=== PATIENT | female | born 1975 | race Caucasian/White ===

== ENCOUNTER 2019-03-21 19:03 | Emergency (ER) | payer OTHER, MEDICAID, SELFPAY ==
[2019-03-21 19:05] VITALS: BP 107/54; PULSE 61; RESP 18; TEMP 36.9; O2SAT 98; BMI 30.4
--- NOTE | 2019-03-21 19:37 | ED_ITS ---
HPI - Abdominal Pain <GILES Nam - Last Filed: 03/21/19 22:45> General Chief Complaint: Recheck/Abnormal Lab/Rx Stated Complaint: d&c and back pain Time Seen by Provider: 03/21/19 19:10 Source: patient Mode of arrival: ambulatory Limitations: no limitations History of Present Illness HPI narrative: Patient is a 43-year-old female with Brudada syndrome requiring ICD pacemaker, , fibromyalgia, anxiety, polysubstance abuse, presents emergency department today stating that she had a D&C on 03/13/2019 for retained products of conception after a miscarriage at 9.5 weeks. Patient states she was told that she still retained products after the D&C. She was then is seen in the emergency department 3 times in the last week at [facility] as she states she was still bleeding. The emergency department there contacted an advertising sales assistant whom recommended she take methergine for 2 days. The patient presents emergency department today stating that since 11:00 p.m. last night, her uterine bleeding has stopped. She is upset as she thinks the medication is not working and that she is still retaining products of conception. Patient states she has been having vaginal bleeding since 03/13/2019 with occasional cortisone is clots. She also reports lower abdominal cramping 2/10 to 8/10 in severity. Patient denies headaches, fevers, vision changes, chest pain, shortness of breath, vaginal bleeding at this time, dysuria, vomiting, or bowel changes. She also reports that she is very anxious and wants to get this over with and back to her family, and reports nausea from the medication. She states she is here cause she was given a choice of 2 different medications fpr this issue last night in the ED and she wants to start taking the other medication. Related Data Allergies Allergy/AdvReac Type Severity Reaction Status Date / Time Sulfa (Sulfonamide Allergy Intermediate HIVES AND Verified 03/21/19 22:52 Antibiotics) SWELLING [SULFA (SULFONAMIDE ANTIBIOTICS)] amitriptyline Allergy Verified 03/21/19 19:25 Review of Systems <GILES Nam - Last Filed: 03/21/19 22:45> Review of Systems Narrative: REVIEW OF SYSTEMS: GENERAL: Denies fever, chills, malaise, or wt. loss. HENT: No head trauma, sore throat, or dysphagia. EYES: No loss of vision, double vision, eye pain, or irritation. CARDIOVASCULAR: No chest pain, palpitations, or orthopnea. RESPIRATORY: No shortness of breath or cough. GASTROINTESTINAL: Complains of abdominal cramping , see HPI GENITOURINARY: No flank pain, urinary incontinence, hesitancy, frequency, or dysuria. No vaginal discharge at this time, states her vaginal bleeding ceased at 11pm last night. MUSCULOSKELETAL: No pain, weakness, or trauma. INTEGUMENTARY: No rash, lesions, or pruritus. NEURO: No numbness, tingling, memory loss, confusion, or headaches. PSYCH: No behavior or mood changes. PFSH <GILES Nam - Last Filed: 03/21/19 22:45> Social History Smoking Status: Current some day smoker Exam <GILES Nam - Last Filed: 03/21/19 22:45> Initial Vital Signs Initial Vital Signs: Vital Signs Temperature 98.4 F 03/21/19 19:05 Pulse Rate 61 03/21/19 19:05 Respiratory Rate 18 03/21/19 19:05 Blood Pressure 107/54 L 03/21/19 19:05 Pulse Oximetry 98 03/21/19 19:05 PHYSICAL EXAMINATION: GENERAL: Well groomed, alert, and cooperative. Very tearful during examination. Answers questions promptly and appropriately. Vital signs noted. HENT: Normocephalic, atraumatic. Hearing intact. Oral mucosa is pink and moist. EYES: Conjunctiva pink, sclera white, no periorbital swelling. CARDIOVASCULAR: S1 and S2 sounds auscultated. Regular rate and rhythm, no murmurs, clicks, or bruits. RESPIRATORY: Normal respiratory rate, trachea midline, airway patent. No stridor, nasal flaring or accessory muscle use. Lungs are clear in all [place] without wheeze, rhonchi, or crackles. GASTROINTESTINAL: Bowel sounds normoactive. Abdomen is soft slight tenderness to lower mid pelvic area with deep palpation, no rebound tenderness. No organomegaly, no palpable masses. GENITALURINARY: No flank tenderness. MUSCULOSKELETAL: Normal gait and coordination. Equal tone and mass bilaterally. EXTREMITIES: CMS intact, no pedal edema. SKIN: Warm, dry, soft, appropriate color for ethnicity. No lesions, rashes, or wounds. NEURO: Alert and Oriented X 3. Good coordination. No ataxia, or sensory deficits, or cognitive issues. PSYCH: Appropriate affect and mood. <Ra Velazquez DO - Last Filed: 03/22/19 06:44> Initial Vital Signs Initial Vital Signs: Vital Signs Temperature 98.4 F 03/21/19 19:05 Pulse Rate 61 03/21/19 19:05 Respiratory Rate 18 03/21/19 19:05 Blood Pressure 107/54 L 03/21/19 19:05 Pulse Oximetry 98 03/21/19 19:05 Course <GILES Nam - Last Filed: 03/21/19 22:45> Course Course Narrative: Records were requested from [facility]. It appears that her ultrasound that was done on 03/20/19 was inconclusive for retained products versus a hematoma. Labs were drawn and an ultrasound was repeated. The low are pertinent details from records obtained from [facility]. Records were obtained from [facility] which showed. Patient was in the emergency department on 03/17/2019 Pelvic Ultrasound: Suspicious for retained products of conception after D&C. Hemoglobin: 13.2 Hematocrit: 38.4 HC Patient was in the emergency department on 03/20/2019 at [facility] Pelvic ultrasound showed: Endometrial continues to demonstrate fluid along with hypercolic material that may represent blood. There has been no change since prior study, it is not possible to complete the exclude retained products of conception. Hemoglobin: 43.4 Hematocrit: 14.7 Patient was given Methergine 0.2 t.i.d. x2 days told to follow up on Saturday with OBGYN. She was also given Zofran, oxycodone, and lorazepam. Ob was consulted. I spoke with Dr. Stovall at 1010. She advised that the patient continue to take Methergine and follow-up with an Ob within the next week if she desires another D&C. She agrees emergent D&C was not needed as patient is very stable. This was all explained to patient, patient received this well and states she would be happy to be seen in our OB Clinic and she was not satisfied with the her last OB care and stated ?I did not like how they treated knee ?. Patient was to free at this time, calm, and relaxed. Orders Ordered: Discontinued Medications Ketorolac Tromethamine (Toradol) 30 mg IM NOW ONE Stop: 03/21/19 22:48 Last Admin: 03/21/19 22:53 Dose: 30 mg Documented by: LORENZO Consultations Consultation #1: Patient was staffed with Dr. Velazquez. Vital Signs Vital signs: Vital Signs - 8 hr 03/21/19 23:09 Pulse Rate 52 L Blood Pressure 111/70 <Ra Velazquez DO - Last Filed: 03/22/19 06:44> Orders Ordered: Discontinued Medications Ketorolac Tromethamine (Toradol) 30 mg IM NOW ONE Stop: 03/21/19 22:48 Last Admin: 03/21/19 22:53 Dose: 30 mg Documented by: LORENZO Vital Signs Vital signs: Vital Signs - 8 hr 03/21/19 23:09 Pulse Rate 52 L Blood Pressure 111/70 MDM - Abdominal Pain <GILES Nam - Last Filed: 03/21/19 22:45> Medical Records Attestation: I reviewed the patient's medical records. Lab Data Attestation: I reviewed the patient's lab results. Result diagrams: 03/21/19 21:01 Labs: Lab Results 03/21/19 03/21/19 Range/Units 21:01 21:01 WBC 8.3 (4.5-11.0) X10^3/uL RBC 4.12 (4.0-5.2) X10^6/uL Hgb 12.9 (12.0-16.0) g/dL Hct 38.0 (36-46) % MCV 92.2 (80-100) fL MCH 31.2 (26-34) PG MCHC 33.9 (30-36) % RDW 12.5 (11.6-14.8) % Plt Count 152 (150-400) X10^3/uL Neut % (Auto) 49.8 L (50-75) % Lymph % (Auto) 38.1 (25-40) % [place] % (Auto) 7.5 (3-14) % Eos % (Auto) 3.8 (2-4) % Baso % (Auto) 0.8 (0-2) % Neut # (Auto) 4200 (6782-6572) /uL Lymph # (Auto) 3200 (8596-4067) /uL [place] # (Auto) 600 (0-900) /uL Eos # (Auto) 300 (0-450) /uL Baso # (Auto) 100 (0-100) /uL HCG, Quant 603.27 mIU/mL Imaging Data US - abdomen: Radiologist's impression: [address] [address] Ultrasound Report Signed Patient: Deandra Crocker EMR#: [id number] : [id number]:[id number] Age/Sex: 43 / FDate of Service: 03/21/19 Loc: ED Accession Number: [id number] Procedure: US pelvic complete Ordering Provider: Alia Liao PROCEDURE: US PELVIC COMPLETE INDICATIONS: CONTINUED BLEEDING AFTER DILATION AND CURETTAGE TECHNIQUE: Real-time scanning was performed of the pelvic organs, with image documentation. Additional endovaginal scanning was necessary due to incomplete visualization of the adnexal and endometrial structures by transabdominal scanning. COMPARISON: [facility], , US PELVIC COMPLETE WITH TRANSVAGINAL, 03/20/2019, 22:44. FINDINGS: Transabdominal scanning: Limited scanning through the kidneys shows no hydronephrosis. No pathologic free abdominal or pelvic fluid. Endovaginal scanning: Uterus: Uterus is normal in size at 11.3 x 6.8 x 5.0 cm. cm. The endometrium measures 15.6 mm in combined thickness. Hyperechoic material again noted in the uterine cavity. Complex fluid measuring 2.2 x 0.8 x 0.6 cm is noted in the endometrial cavity. Ovaries: Right ovary measures 3.3 x 3.0 x 2.0 cm. Right ovary is sonographically normal. Left ovary is not identified the current study secondary to bowel gas and cannot be evaluated. IMPRESSION: Thickened endometrium with persistent hyperechoic material and complex fluid in the endometrial cavity which may represent hemorrhage and clot however underlying retained products of conception cannot be excluded. Dictated by: Hawa King MD, PhD on 03/21/2019 at 21:24 Approved by: Hawa King MD, PhD on 03/21/2019 at 21:28 MDM Narrative Medical decision making narrative: Differential is fairly simple as retained products of conception are suspected the ultrasound. Additionally, patient has had following levels of HCG. She has had stable HCT and hemoglobin levels. She is hemodynamically stable without distress. Patient does not meet emergent criteria for surgical intervention at this time. She is safe for outpatient therapy. Strict return precautions given and follow-up instructions discussed. <Ra Josephan, DO - Last Filed: 03/22/19 06:44> Lab Data Labs: Lab Results 03/21/19 03/21/19 Range/Units 21:01 21:01 WBC 8.3 (4.5-11.0) X10^3/uL RBC 4.12 (4.0-5.2) X10^6/uL Hgb 12.9 (12.0-16.0) g/dL Hct 38.0 (36-46) % MCV 92.2 (80-100) fL MCH 31.2 (26-34) PG MCHC 33.9 (30-36) % RDW 12.5 (11.6-14.8) % Plt Count 152 (150-400) X10^3/uL Neut % (Auto) 49.8 L (50-75) % Lymph % (Auto) 38.1 (25-40) % [place] % (Auto) 7.5 (3-14) % Eos % (Auto) 3.8 (2-4) % Baso % (Auto) 0.8 (0-2) % Neut # (Auto) 4200 (7215-4162) /uL Lymph # (Auto) 3200 (9022-4112) /uL [place] # (Auto) 600 (0-900) /uL Eos # (Auto) 300 (0-450) /uL Baso # (Auto) 100 (0-100) /uL HCG, Quant 603.27 mIU/mL Discharge Plan Departure Patient Disposition: Home Clinical Impression: Retained products of conception after miscarriage Discharge Date/Time: 03/21/19 23:10 Activity Restrictions/Additional Instructions: Thank you for entrusting me with your care today. As discussed, your HCG levels are decreasing which is reassuring, however your ultrasound shows there is still a small amount of products of conception retained in your uterus. I have spoke with Dr. Stovall and she suggested continue taking medication as directed. Your body may take some time to go through this process. I have placed a referral to our Ob Clinic, please call them on Saturday to schedule an appointment, their number is [phone]. Return to the emergency department if you develop severe bleeding, dizziness, syncope, chest pain, shortness of breath, or any other concerns. Referrals: Sommer Butt, [employer]OR-[employer] [Primary Care Provider] - Sandy Stovall MD [Physician] - (Retained products of conception following miscarriage and D & C. ) <Ra Velazquez DO - Last Filed: 03/22/19 06:44> Sign Out Provider Sign Out Attestation: I was immediately available in the department for consultation. Documentation has been reviewed. I agree with assessment and plan.
--- NOTE | 2019-03-21 20:02 | DI.US.S_ITS ---
PROCEDURE: US PELVIC COMPLETE INDICATIONS: CONTINUED BLEEDING AFTER DILATION AND CURETTAGE TECHNIQUE: Real-time scanning was performed of the pelvic organs, with image documentation. Additional endovaginal scanning was necessary due to incomplete visualization of the adnexal and endometrial structures by transabdominal scanning. COMPARISON: [facility], US, US PELVIC COMPLETE WITH TRANSVAGINAL, 03/20/2019, 22:44. FINDINGS: Transabdominal scanning: Limited scanning through the kidneys shows no hydronephrosis. No pathologic free abdominal or pelvic fluid. Endovaginal scanning: Uterus: Uterus is normal in size at 11.3 x 6.8 x 5.0 cm. cm. The endometrium measures 15.6 mm in combined thickness. Hyperechoic material again noted in the uterine cavity. Complex fluid measuring 2.2 x 0.8 x 0.6 cm is noted in the endometrial cavity. Ovaries: Right ovary measures 3.3 x 3.0 x 2.0 cm. Right ovary is sonographically normal. Left ovary is not identified the current study secondary to bowel gas and cannot be evaluated. IMPRESSION: Thickened endometrium with persistent hyperechoic material and complex fluid in the endometrial cavity which may represent hemorrhage and clot however underlying retained products of conception cannot be excluded. Dictated by: Hawa King MD, PhD on 03/21/2019 at 21:24 Approved by: Hawa King MD, PhD on 03/21/2019 at 21:28
[2019-03-21 21:03] VITALS: BP 104/59; PULSE 51; RESP 17; O2SAT 100
[2019-03-21 21:19] LABS: Add Manual Diff / Slide Review NO; Basophils Absolute Auto 100 /uL (0-100); Basophils Percent Auto 0.8 % (0-2); Eosinophils Absolute Auto 300 /uL (0-450); Eosinophils Percent Auto 3.8 % (2-4); Hemoglobin 12.9 g/dL (12.0-16.0); Lymphocytes Absolute Auto 3200 /uL (1100-4500); Lymphocytes Percent Auto 38.1 % (25-40); Mean Corpuscular HGB Conc 33.9 % (30-36); Mean Corpuscular Hemoglobin 31.2 PG (26-34); Mean Corpuscular Volume 92.2 fL (80-100); Monocytes Absolute Auto 600 /uL (0-900); Monocytes Percent Auto 7.5 % (3-14); Neutrophils Absolute Auto 4200 /uL (1500-7000); Neutrophils Percent Auto 49.8 % (50-75); Platelet Count 152 X10^3/uL (150-400); Red Blood Cell Count 4.12 X10^6/uL (4.0-5.2); Red Cell Distribution Width 12.5 % (11.6-14.8); White Blood Cell Count 8.3 X10^3/uL (4.5-11.0)
[2019-03-21 21:46] LABS: HCG Quantitative /Beta subunit 603.27 mIU/mL
[2019-03-21] MEDS: KETOROLAC 60 MG/2 ML VIAL 30 MG IM (22:53)
[2019-03-21 23:09] VITALS: BP 111/70; PULSE 52
== END 2019-03-21 23:10 | disposition home or self-care (01) ==
PROVIDERS: Emergency Provider Nurse Practitioner; Family Provider Family Medicine; PCP Nurse Practitioner
DX: O03.4 Incomplete spontaneous abortion without complication (principal)
CPT/HCPCS: 36415; 76856; 84702; 85025; 96372; 99282; 99284; J1885

== ENCOUNTER 2020-09-07 02:52 | Emergency (ER) | payer OTHER, SELFPAY ==
--- NOTE | 2020-09-07 02:54 | ED.FEMALEGU ---
HPI - Female Genitourinary General Chief complaint: Vaginal Bleeding Stated complaint: 7 wks thinks having a miscarriage Time Seen by Provider: 09/07/20 02:53 Source: patient Mode of arrival: Ambulatory Limitations: no limitations History of Present Illness HPI Narrative: 45-year-old female occasional smoker with a history of Brugada syndrome and pacemaker AICD presents with about 10 hours of light spotting and pelvic cramping. She is a at about 7 weeks by dates and does not have care established for this yet. She is not dizzy, weak or lightheaded. She denies any chest pain or shortness of breath. She has had no fever or shaking chills. She states that she was bleeding a bit heavier earlier today but has slowed. MD Complaint: vaginal bleeding and vaginal discharge Onset (ago): hour(s) Location: suprapubic Severity: mild Quality: Cramping Duration: intermittent Relieving factors: none Exacerbating factors: none Vaginal discharge: blood clots Patient : Yes Associated symptoms: denies other symptoms Related Data Allergies Allergy/AdvReac Type Severity Reaction Status Date / Time Sulfa (Sulfonamide Allergy Intermediate HIVES AND Verified 03/21/19 22:52 Antibiotics) SWELLING [SULFA (SULFONAMIDE ANTIBIOTICS)] amitriptyline Allergy Verified 03/21/19 19:25 Review of Systems Constitutional Constitutional: Denies chills, Denies fatigue, Denies fever(s), Denies frequent falls, Denies lethargy and Denies weakness Eyes Eyes: Denies change in vision, Denies eye discharge, Denies irritation and Denies loss of vision ENT Ears, Nose, Mouth, and Throat: Denies change in voice, Denies dizziness, Denies neck pain, Denies sore throat and Denies throat swelling Cardiovascular Cardiovascular: Denies chest pain, Denies irregular heart rhythm, Denies lightheadedness, Denies palpitations, Denies dyspnea, Denies dyspnea on exertion and Denies orthopnea Respiratory Respiratory: Denies cough, Denies dyspnea, Denies dyspnea on exertion and Denies wheezing Gastrointestinal Gastrointestinal: Denies abdominal pain, Denies change in bowel habits, Denies diarrhea, Denies nausea and Denies vomiting Genitourinary Genitourinary: Denies dysuria and Denies dysuria Genitourinary: Reports abnormal vaginal bleeding, Denies difficulty voiding, Denies dysuria, Denies dysuria and Reports pelvic pain Musculoskeletal Musculoskeletal: Denies neck pain and Denies numbness Integumentary/Breasts Skin/Breast: Denies pruritus, Denies erythema, Denies rash and Denies wounds Neurologic Neurologic: Denies behavioral changes, Denies confusion, Denies dizziness, Denies frequent falls, Denies loss of vision, Denies numbness and Denies weakness Psychiatric Psychiatric: Denies anxiety, Denies behavioral changes, Denies confusion, Denies depression, Denies homicidal ideation and Denies suicidal ideation Endocrine Endocrine: Denies fatigue, Denies flushing and Denies palpitations Hematologic/Lymphatic Hematologic/Lymphatic: Denies easy bruising Allergic/Immunologic Allergic/Immunologic: Denies urticaria, Denies throat swelling and Denies wheezing Patient History Medical History (Updated 09/07/20 @ 04:51 by Ra Velazquez DO) Presence of combination internal cardiac defibrillator (ICD) and pacemaker alcohol intake frequency: other Substance Use Type: does not use Exam Narrative Exam Narrative: GENERAL: [45] year old patient appears stated age. Well-nourished, well-developed patient, in mild distress. HEAD: Atraumatic. Normocephalic. EYES: Pupils equal round and reactive. Extraocular motions intact. No scleral icterus. No injection or drainage. ENT: Nose without bleeding, purulent drainage. Throat without erythema, tonsillar hypertrophy or exudate. Airway patent. NECK: Trachea midline. Non tender CARDIOVASCULAR: Regular rate and rhythm without murmurs, gallops, or rubs. RESPIRATORY: Clear to auscultation. Breath sounds equal bilaterally. No wheezes, rales, or rhonchi. GASTROINTESTINAL: Abdomen soft, non-tender, nondistended. EXTREMITIES: No edema or joint tenderness. BACK: Nontender without deformity or crepitance. No flank tenderness. NEURO: AOx3. SKIN: No rash or erythema of visible areas Initial Vital Signs Initial Vital Signs: Vital Signs Temperature 98.6 F 09/07/20 03:01 Pulse Rate 100 H 09/07/20 03:01 Respiratory Rate 16 09/07/20 03:01 Blood Pressure 123/65 09/07/20 03:01 Pulse Oximetry 97 09/07/20 03:01 Course Orders Ordered: ED Orders 09/07/20 03:55 Basic Metabolic Panel Stat Complete Blood Count AUTO DIFF Stat HCG Quantitative /Beta subunit Stat 09/07/20 04:52 US OB <= 14 weeks fetus Stat Vital Signs Vital signs: Vital Signs - 8 hr 09/07/20 03:01 Temperature 98.6 F Pulse Rate 100 H Respiratory Rate 16 Blood Pressure 123/65 Pulse Oximetry 97 MDM - Female Genitourinary Lab Data Result diagrams: 09/07/20 03:55 09/07/20 03:55 Labs: Lab Results 09/07/20 09/07/20 Range/Units 03:55 03:55 WBC 11.1 H (4.5-11.0) X10^3/uL RBC 4.48 (4.0-5.2) X10^6/uL Hgb 13.6 (12.0-16.0) g/dL Hct 40.1 (36-46) % MCV 89.4 (80-100) fL MCH 30.3 (26-34) PG MCHC 33.9 (30-36) % RDW 13.4 (11.6-14.8) % Plt Count 185 (150-400) X10^3/uL Neut % (Auto) 60.0 (50-75) % Lymph % (Auto) 31.2 (25-40) % [place] % (Auto) 6.6 (3-14) % Eos % (Auto) 1.4 L (2-4) % Baso % (Auto) 0.8 (0-2) % Neut # (Auto) 6600 (9314-6040) /uL Lymph # (Auto) 3400 (1062-2867) /uL [place] # (Auto) 700 (0-900) /uL Eos # (Auto) 200 (0-450) /uL Baso # (Auto) 100 (0-100) /uL Sodium 135 L (137-145) mmol/L Potassium 3.9 (3.4-5.1) mmol/L Chloride 106 (98-107) mmol/L Carbon Dioxide 23 (22-32) mmol/L BUN 6 L (7-17) mg/dL Creatinine 0.63 (0.52-1.04) mg/dL Estimated GFR > 60.0 (>60) mL/min BUN/Creatinine Ratio 9.5 (6-22) Glucose 109 H (70-100) mg/dL Calcium 9.3 (8.4-10.2) mg/dL HCG, Quant 44165 mIU/mL Urine Dip Bedside Urine Glucose Negative Bedside Urine Bilirubin - Negative Bedside Urine Ketone - Negative Urine Specific [place] 1.020 Bedside Urine Occult Blood - Negative Bedside Urine pH 6.0 Bedside Urine Protein - Negative Bedside Urine Urobilinogen - Negative Bedside Urine Nitrite - Negative Bedside Urine Leukocytes - Negative Esterase Imaging Data US - OB: Radiologist's Impression: IUP at 6 weeks 4 days. No subchorionic bleed MDM Narrative Medical decision making narrative: Minimal bleeding with stables vitals and H/H. IUP on ultrasound. Discussed with patient that I am concerned about threatened AB and she states an understanding and has been through it before. We discussed return precautions, pelvic rest and need for follow up Discharge Plan Departure Patient Disposition: Home Clinical Impression: Vaginal bleeding, Threatened Instructions: DI for Vaginal Bleeding During Activity Restrictions/Additional Instructions: *You have been diagnosed with [vaginal bleeding and cramping in . Unclear etiology at this point, could be early miscarriage] *What to do: *Follow up with your OB / primary care provider in 2-3 days, call for an appointment. Let them know you were seen in the Emergency Department and that we ask that you be seen in follow up *Return to ER if you should have any new, worsening or concerning symptoms, such as [bleeding through greater than 1 pad per hour for multiple hours, increasing pain, fever over 101 F or other bothersome symptoms] Referrals: Sommer Butt FNP-C [Primary Care Provider] -
[2020-09-07 03:01] VITALS: BP 123/65; PULSE 100; RESP 16; TEMP 37; O2SAT 97; BMI 28.8
--- NOTE | 2020-09-07 03:59 | PC.NURSE ---
Pt stated she is and currently is 7 weeks . She noticed that since 09/06 she has been passing clots and some bloody discharge and feels she may be miscarrying. Urine analyzed and blood drawn for labs
[2020-09-07 04:11] LABS: Add Manual Diff / Slide Review NO; Basophils Absolute Auto 100 /uL (0-100); Basophils Percent Auto 0.8 % (0-2); Eosinophils Absolute Auto 200 /uL (0-450); Eosinophils Percent Auto 1.4 % (2-4); Hematocrit 40.1 % (36-46); Hemoglobin 13.6 g/dL (12.0-16.0); Lymphocytes Absolute Auto 3400 /uL (1100-4500); Lymphocytes Percent Auto 31.2 % (25-40); Mean Corpuscular HGB Conc 33.9 % (30-36); Mean Corpuscular Hemoglobin 30.3 PG (26-34); Mean Corpuscular Volume 89.4 fL (80-100); Monocytes Absolute Auto 700 /uL (0-900); Monocytes Percent Auto 6.6 % (3-14); Neutrophils Absolute Auto 6600 /uL (1500-7000); Platelet Count 185 X10^3/uL (150-400); Red Blood Cell Count 4.48 X10^6/uL (4.0-5.2); Red Cell Distribution Width 13.4 % (11.6-14.8); White Blood Cell Count 11.1 X10^3/uL (4.5-11.0)
[2020-09-07 04:14] LABS: BUN Creatinine Ratio 9.5 (6-22); Blood Urea Nitrogen 6 mg/dL (7-17); Calcium 9.3 mg/dL (8.4-10.2); Carbon Dioxide 23 mmol/L (22-32); Chloride 106 mmol/L (98-107); Estimated Glomerular Filt Rate > 60.0 mL/min (>60); Glucose 109 mg/dL (70-100); HEMOLYSIS < 15 (0-50); Potassium 3.9 mmol/L (3.4-5.1); Sodium 135 mmol/L (137-145)
--- NOTE | 2020-09-07 04:52 | DI.US.S_ITS ---
PROCEDURE: US OB <= 14 WEEKS FETUS INDICATIONS: BLEEDING OUTSIDE/PRIOR DATING DATA: Last menstrual period (LMP): 07/30/2020 LMP-based estimated date of delivery (ZOE): 04/26/2021 First dating scan (date and location): 09/07/2020 Estimated date of delivery (ZOE) from first dating scan: 04/29/2021 TECHNIQUE: Real-time scanning was performed of the fetus and maternal pelvic organs, with image documentation. Endovaginal scanning was also performed to better visualize the fetus and maternal ovaries. COMPARISON: None. FINDINGS: Embryo: Single intrauterine gestational sac is seen with fetus and yolk sac seen. [place]-rump length measures 0.7 centimeters. Estimated gestational age is 6 weeks 4 days. heart rate is 125 beats per minute. No perigestational hemorrhage is seen. Measurement variability in dating: +/- 4 weeks by LMP, +/- 7 days by mean sac diameter (use before 6 weeks gestation if crown-rump length not able to be measured), +/- 5 days by crown-rump length (up to 8 weeks 6 days gestation), +/- 7 days by crown-rump length (up to 13 weeks 6 days gestation). Maternal organs: Right ovary is visualized and is within normal limits. Left ovary is not definitively identified. IMPRESSION: 1. Single live intrauterine with fetus and yolk sac seen. heart rate is 125 beats per minute. Estimated gestational age is 6 weeks, 4 days. 2. No gross adnexal mass. Normal appearing right ovary. Left ovary is not visualized on this study. No discrepancies from preliminary reading. Dictated by: Philip Garcia M.D. on 09/07/2020 at 9:12 Approved by: Philip Garcia M.D. on 09/07/2020 at 9:14
[2020-09-07 04:56] LABS: HCG Quantitative /Beta subunit 15262 mIU/mL
[2020-09-07 06:14] VITALS: BP 115/71; PULSE 74; RESP 16; TEMP 36.6; O2SAT 99
== END 2020-09-07 06:15 | disposition home or self-care (01) ==
PROVIDERS: Emergency Provider Emergency Medicine; Family Provider Family Medicine; PCP Nurse Practitioner
DX: O20.0 Threatened abortion (principal); Z3A.01 Less than 8 weeks gestation of pregnancy; I49.8 Other specified cardiac arrhythmias; Z95.0 Presence of cardiac pacemaker
CPT/HCPCS: 36415; 76801; 76817; 80048; 81003; 84702; 85025; 99283; 99284